=== PATIENT | male | born 1970 | race Two or more races ===

== ENCOUNTER 2021-02-15 11:27 | Emergency (ER) | payer MEDICAID, OTHER ==
[~2021-02-15] VITALS: Ht 172.7 cm; Wt 74.8 kg
[2021-02-15 11:34] VITALS: BP 122/79
== END 2021-02-15 12:10 | disposition left against medical advice (07) ==
LOC: ER 11:27
DX: M79.675 Pain in left toe(s) (principal); Z53.21 Procedure and treatment not carried out due to patient leaving prior to being seen by health care provider